=== PATIENT | female | born 1970 | race Caucasian/White ===

== ENCOUNTER 2022-02-16 15:26 | Emergency (ER) | payer OTHER ==
[2022-02-16 16:09] LABS: BASOPHIL 0.3 % (0-2); EOSINOPHIL 0 % (0-5); HCT 50.8 % (37.0-47.0); HGB 17.1 g/dl (12.5-16.0); LYMPHOCYTE 33.3 % (15-48); MCH 30.7 pg (25.0-31.0); MCHC 33.7 g/dL (32.0-36.0); MCV 91.2 fL (78.0-100.0); MONOCYTE 12.8 % (0-12); MPV 10.2 fL (6.0-9.5); NEUTROPHIL 53.3 % (41-80); NRBC 0; PLT 159 K/uL (150-400); RBC 5.57 M/uL (4.20-5.40); RDW 12.5 % (11.5-14.0); WBC 2.9 K/uL (4.0-10.5)
[2022-02-16 16:27] LABS: BILIRUBIN 1+ mg/dL (NEGATIVE); BLOOD NEGATIVE Ery/uL (NEGATIVE); CLARITY CLEAR (CLEAR); COLOR YELLOW (YELLOW); GLUCOSE (U) NORMAL (NORMAL); LEUKOCYTES NEGATIVE Leu/uL (NEGATIVE); NITRITE NEGATIVE (NEGATIVE); PROTEIN TRACE (LOW) mg/dL (NEGATIVE); SPECIFIC GRAVITY 1.025 (1.001-1.030); UROBILINOGEN 0.2 mg/dL (0.2-1.0)
[2022-02-16 16:29] LABS: BUN/CREAT RATIO (CALC) 21.3 RATIO; CREATININE 0.61 mg/dL (0.51-0.95); POTASSIUM 3.7 mmol/L (3.5-5.1)
[2022-02-16 16:32] LABS: BACTERIA TRACE; MUCOUS TRACE
[2022-02-16 16:33] LABS: URINARY RBC RARE
[2022-02-16 16:49] LABS: INFLUENZA A NAA NEGATIVE (NEGATIVE)
[2022-02-16 16:50] LABS: CORONAVIRUS 2019 SARS-COV-2 POSITIVE (NEGATIVE)
== END 2022-02-16 19:15 | disposition home or self-care (01) ==
LOC: FER 15:26
PROVIDERS: Nurse Practitioner Family
DX: U07.1 COVID-19 (principal); E86.0 Dehydration; Z28.310 Unvaccinated for COVID-19; Z88.5 Allergy status to narcotic agent
CPT/HCPCS: 36415; 80048; 81001; 85025; J2405; J7030; J7120; U0002